=== PATIENT | female | born 1985 | race Caucasian/White ===

== ENCOUNTER 2017-12-03 10:46 | Emergency (ER) | payer OTHER, MEDICAID ==
[2017-12-03] MEDS: predniSONE 20 MG TAB PO (12:12)
[2017-12-03] MEDS: IPRATROPIUM (NEB) 0.5 MG/2.5 ML AMP NEB ×2 (12:13→13:21)
[2017-12-03] MEDS: LEVALBUTEROL (NEB) 1.25 MG/0.5 ML AMP INH ×2 (12:13→13:21)
== END 2017-12-03 14:10 | disposition home or self-care (01) ==
LOC: FTE 14:10
DX: J45.901 Unspecified asthma with (acute) exacerbation (principal)
CPT/HCPCS: 94640; 94664; 99284-25